=== PATIENT | female | born 1995 | race Two or more races ===

== ENCOUNTER 2024-08-21 09:14 | Emergency (ER) | payer OTHER ==
[~2024-08-21] VITALS: Ht 160 cm; Wt 96.2 kg
[2024-08-21] MEDS ORDERED: ENALAPRILAT DIHYDRATE 2.5 MG/2 ML VIAL IV STA (09:58)
[2024-08-21] MEDS ORDERED: ENALAPRILAT DIHYDRATE 1.25 MG/ML VIAL IV ONE (10:04)
[2024-08-21 10:41] LABS: BASO % 0.7 % (0.1-1.2); EOS # 0.09 (0.04-0.54); EOS % 0.9 % (0.7-7.0); HEMATOCRIT 38.6 % (34.1-44.9); HEMOGLOBIN 13.1 g/dL (11.2-15.7); LYMPH # 1.77 (1.18-3.74); LYMPH % 18.3 % (19.3-53.1); MEAN CORPUSCULAR HEMOGLOBIN 28.6 pg (25.6-32.2); MONO # 0.58 (0.24-0.82); NEUT # 7.14 (1.56-6.13); NEUT % 73.8 % (34.0-71.1); PLATELET COUNT 265 K/uL (163-369); RED BLOOD COUNT 4.58 M/uL (3.93-5.22); RED CELL DISTRIBUTION WIDTH 11.9 % (11.6-14.4)
[2024-08-21 12:02] LABS: ALBUMIN 3.6 gm/dL (3.4-5.0); BILIRUBIN TOTAL 0.36 mg/dL (0.3-1.2); CALCIUM 8.9 mg/dL (8.5-10.1); CREATININE SERUM 0.96 mg/dL (0.55-1.02); GFR 69.72; GLOBULINA 3.8 G/DL (2.4-3.5); POTASSIUM 4.45 mEq/L (3.5-5.1); TOTAL PROTEIN 7.4 gm/dL (6.4-8.2)
== END 2024-08-21 12:45 | disposition home or self-care (01) ==
LOC: ER 09:24
PROVIDERS: General Practice
DX: I10 Essential (primary) hypertension (principal)